=== PATIENT | male | born 1995 | race American Indian/Alaskan Native ===

== ENCOUNTER 2020-10-03 09:19 | Emergency (ER) | payer SELFPAY ==
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
[2020-10-03] MEDS ORDERED: ACETAMINOPHEN 500 MG TAB PO ONE (10:38)
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
[2020-10-03 12:31] VITALS: BP 120/73
== END 2020-10-03 12:26 | disposition home or self-care (01) ==
LOC: ED 09:19
DX: S39.012A Strain of muscle, fascia and tendon of lower back, initial encounter (principal); S43.491A Other sprain of right shoulder joint, initial encounter; S60.221A Contusion of right hand, initial encounter; J45.909 Unspecified asthma, uncomplicated; W30.81XA Contact with agricultural transport vehicle in stationary use, initial encounter; Y93.89 Activity, other specified; Y92.89 Other specified places as the place of occurrence of the external cause; Y99.8 Other external cause status
CPT/HCPCS: 70486; 72100